=== PATIENT | female | born 1985 | race Caucasian/White ===

== ENCOUNTER 2016-07-09 10:30 | Emergency (ER) | payer BC ==
[~2016-07-09] VITALS: Ht 157.5 cm; Wt 59.5 kg
[2016-07-09 10:35] VITALS: BP 120/69; PULSE 74; RESP 16; TEMP 97.7; O2SAT 98
--- NOTE | 2016-07-09 13:01 | PD ---
HPI Chief Complaint: Related Problem Time Seen by Provider: 12:58 Travel History International Travel<30 days: No Contact w/Intl Traveler<30days: No Traveled to known affect area: No History of Present Illness HPI 31-year-old female presents to the emergency department for evaluation of early . The patient states that her last menstrual period was 05/21/16 and that she has had 3 positive tests at home. She is here today because "I just don't feel like I'm ." She is asking if there is any way that I can prove that she is . She denies any abdominal pain, vaginal bleeding, vaginal discharge, burning with urination, painful urination, fever, chills, nausea, vomiting. She is A1. Follows up with a sales account director in [place]. No other complaints. PFSH Past Medical History Medical History: Denies Significant Hx ?: LMP: 05/21/2016 Social History Tobacco Use: No Allergies-Medications (Allergen,Severity, Reaction): Coded Allergies: No Known Allergies (Unverified , 07/09/16) Reported Meds & Prescriptions Reported Meds & Active Scripts Active No Active Prescriptions or Reported Medications Review of Systems Except as stated in HPI: all other systems reviewed are Neg Physical Exam Narrative GENERAL: Well-nourished and well-developed pleasant female patient in no acute distress who is nontoxic appearing. SKIN: Warm and dry. HEAD: Normocephalic and atraumatic. EYES: No injection, drainage, or hyphema noted. PERRLA. EOMI. ENT: No nasal drainage noted. Oropharynx is clear. NECK: Supple and the trachea is midline. CARDIOVASCULAR: Regular rate and rhythm. RESPIRATORY: Breath sounds are equal bilaterally with no accessory muscle use, wheezing, rhonchi, or crackles. GASTROINTESTINAL: Abdomen is soft, non-tender, and nondistended. No suprapubic or adnexal tenderness. No rebound tenderness or guarding. NEUROLOGICAL: Awake, alert, and oriented. Normal speech and gait. Cranial nerves are grossly intact. Data Data Last Documented VS Vital Signs Date Time Temp Pulse Resp B/P Pulse Ox O2 Delivery O2 Flow Rate FiO2 07/09/16 10:35 97.7 74 16 120/69 98 Room Air Orders Ed Urine Pregnancytest Poc (07/09/16 10:56) MDM Medical Decision Making Medical Screen Exam Complete: Yes Emergency Medical Condition: Yes Differential Diagnosis Early versus normal examination versus medical clearance Narrative Course 31-year-old female presents to the emergency department for evaluation of early . Patient is afebrile, vital signs are stable. She has no abdominal pain or vaginal bleeding. Abdominal examination is benign. She is requesting a way to prove that she is . She's had now for positive urine tests and her last menstrual period was 05/21/16. By dates she would be about 7 weeks . I explained to the patient that this is extremely early and we would likely not see this on ultrasound regardless of the fact that there is no emergent indication to perform ultrasound here in the ED. She is advised to follow-up with her payroll and benefits assistant as an outpatient. Diagnosis Primary Impression: Early stage of Referrals: [facility] Patient Instructions: First Trimester (ED), General Instructions Additional Instructions: Follow-up with your [facility]. Return to the ED for any acute worsening of symptoms. Med/Other Pt SpecificInfo: No Change to Meds Scripts No Active Prescriptions or Reported Meds Disposition: 01 DISCHARGE HOME Condition: Stable Chasidy Loco Jul 09, 2016 13:01
== END 2016-07-09 13:32 | disposition home or self-care (01) ==
LOC: NEPB 10:30
DX: Z33.1 Pregnant state, incidental (principal)
CPT/HCPCS: 84703; 99283

== ENCOUNTER 2017-02-28 15:00 | Emergency (ER) | payer BC ==
--- NOTE | 2017-02-28 15:47 | PD ---
HPI Chief Complaint Decreased movement Date Seen: Feb 28, 2017 Time Seen: 15:30 Travel History International Travel<30 Days: No Contact w/Intl Traveler<30Days: No Known Affected Area: No History of Present Illness HPI Patient is 32-year-old white female previous now 40 weeks and 6 days presents with decreased movement. Denies bleeding or leakage of fluid. She is having some abdominal tightening she didn't really recognize cyanosis contractions which she is huong on the monitor. Patient plans to deliver vaginally and [facility] because she is followed in the high-risk clinic there is her last baby was born with a heart defect so far this baby's been clear of anatomic defect. heart rate tracing is reactive now she is huong and tolerating that well as a negative contraction stress test and a reactive NST, she is also feeling baby move here on OB ED Weeks Gestation: 40 Para: 2 : 4 History Obstetric History Obstetric History first baby,. with second baby at home breech Past Surgical History Narrative Surgical Social History Alcohol Use: No Tobacco Use: No Substance Abuse: No Allergies-Medications (Allergen,Severity, Reaction): Coded Allergies: No Known Allergies (Unverified , 07/09/16) Home Meds No Active Prescriptions or Reported Meds Review of Systems General / Constitutional: No: Fever, Weight Gain, Chills, Other Eyes: No: Diploplia, Blurred Vision, Visual changes, Pain, Photophobia HENT: No: Headaches, Vertigo, Lightheadedness Cardiovascular: No: Irregular Rhythm, Chest Pain or Discomfort, Palpitations, Tachycardia, Syncope, Varicosities, Edema, Cyanosis Respiratory: No: Cough, Short of Breath, Other Gastrointestinal: No: Nausea, Vomiting, Diarrhea Genitourinary: No: Decreased Urinary Output, Oliguria Musculoskeletal: No: Limited ROM, Weakness, Cramping, Edema, Pain Skin: No Rash, No Itching, No Dryness, No Lumps, No Change in Pigmentation, No Change in Nails, No Alopecia, No Lesions Neurologic: No: Weakness, Dizziness, Syncope, Focal Abnormalities, Coordination Problem, Headache, Slurred Speech, Seizures Psychiatric: No: Depression, Suicidal Ideations, Homicidal Ideation Endocrine: No: Heat Intolerance, Cold Intolerance, Polydipsia, Polyuria, Other Physical Exam Narrative GENERAL: Well-nourished, well-developed patient. SKIN: Warm and dry. HEAD: Normocephalic and atraumatic. EYES: No scleral icterus. No injection or drainage. ENT: No nasal drainage noted. Mucous membranes pink. Airway patent. NECK: Supple, trachea midline. No JVD. CARDIOVASCULAR: Regular rate and rhythm without murmurs, gallops, or rubs. RESPIRATORY: Breath sounds equal bilaterally. No accessory muscle use. BREASTS: Bilateral exam showed no masses , no retractions, no nipple discharge. ABDOMEN/GI: Abdomen soft, non-tender, bowel sounds present, no rebound, no guarding Gravid to [40-] weeks size Fundal Height: [40-] GENITOURINARY: External Genitalia: intact and normal in appearance BUS glands: [-] Cervix: [post-] Dilatation: [1-2-] Effacement: [60-] Station: [-3] Presentation: [-vtx] Membranes: [intact ] Uterine Contractions: [-irreg] FHT's: Category: [1-] Baseline: [133-] Reactive: [-yes] Variability: [mod-] Decels: [-none] EXTREMITIES: No cyanosis or edema. BACK: Nontender without obvious deformity. No CVA tenderness. NEUROLOGICAL: Awake and alert. Motor and sensory grossly within normal limits. Five out of 5 muscle strength in all muscle groups. Normal speech. MDM Interpretation(s) The patient is 32-year-old white female previous and without 40 weeks followed by the high-risk OB clinic and they'll deliver in [place] at the [facility] and is planning to deliver there vaginally is another , she presents complaining of decreased movement today and some abdominal tightening.. 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 She doesn't even notice that there contractions at this time, and her cervix is 1-2/ 60 and -3,. Plan Plan to discharge patient home and she understands her contractions worsen and pain she needs to go [facility] because where she's planning to deliver Diagnosis Diagnosis: Primary Impression: 40 weeks gestation of Additional Impressions: Decreased movement affecting management of in third trimester Previous section Disposition: 01 DISCHARGE HOME Condition: Stable Scripts No Active Prescriptions or Reported Meds David Mendez II, MD Feb 28, 2017 15:47
== END 2017-02-28 16:12 | disposition home or self-care (01) ==
LOC: HOBED 15:00
DX: O36.8130 Decreased fetal movements, third trimester, not applicable or unspecified (principal); O34.219 Maternal care for unspecified type scar from previous cesarean delivery; Z3A.40 40 weeks gestation of pregnancy
CPT/HCPCS: 59025